=== PATIENT | male | born 1975 | race Two or more races ===

== ENCOUNTER 2018-11-06 16:29 | Inpatient (IN) | payer OTHER ==
[2018-11-06 19:19] VITALS: BMI 23.6
--- NOTE | 2018-11-06 21:02 | HP ---
COWS - Scale Resting Pulse: 0= [place] 80 or Below Sweatin= Chills/Flushing Restless Observation: 1= Difficult to Sit Still Pupil Size: 1= Pupils >than Normal Bone or Joint Aches: 2= Severe Diffuse Aches Runny Nose/ Eye Tearin= Runny Nose/Eyes GI Upset > 30mins: 2= Nausea/Diarrhea Tremor Observation: 2= Slight Tremor Visible Yawning Observation: 0= None Anxiety or Irritability: 1=Feels Anxious/Irritable Goose Flesh Skin: 0=Smooth Skin COWS Score: 12 CIWA Score Nausea/Vomitin-Mild Nausea/No Vomiting Muscle Tremors: 3 Anxiety: 3 Agitation: 3 Paroxysmal Sweats: 2 Orientation: 0-Oriented Tacttile Disturbances: 0-None Auditory Disturbances: 0-None Visual Disturbances: 0-None Headache: 0-None Present CIWA-Ar Total Score: 12 - Admission Criteria [facility]ASAS Guidelines: Admission for Medically Managed Detox: Requires at least one of the followin. CIWA greater than 12 2. Seizures within the past 24 hours 3. Delirium tremens within the past 24 hours 4. Hallucinations within the past 24 hours 5. Acute intervention needed for co occurring medical disorder 6. Acute intervention needed for co occurring psychiatric disorder 7. Severe withdrawal that cannot be handled at a lower level of care (continued vomiting, continued diarrhea, abnormal vital signs) requiring intravenous medication and/or fluids 8. Patient presents the following: CIWA greater than 12 Admission Criteria Met: Admission criteria met Admission ROS [facility] Chief Complaint: detox for benzo, heroin and alcohol. History of Present Illness: 42 yo no medical problems, on remeron and vistaril, sent here from [facility] in [place]. Has been to rehab about 2 years and relapsed within a few months. Started using about opioids since age 20. Now uses: Heroin- 1 bundle a day, sniff Alcohol- 2 40 oz of beer/hen[place] benzo- 5 2 mg xanax cocaine- 1-2 gram/day IStop- negative for substances Utox: fen/morphine Exam Limitations: No Limitations - Ebola screening Have you traveled outside of the country in the last 21 days: No Have you been sick,other than usual withdrawal symptoms: No Do you have a fever: No - Review of Systems Constitutional: No Symptoms Reported EENT: reports: No Symptoms Reported Respiratory: reports: No Symptoms reported Cardiac: reports: No Symptoms Reported GI: reports: No Symptoms Reported : reports: No Symptoms Reported Musculoskeletal: reports: No Symptoms Reported Neuro: reports: No Symptoms reported Endocrine: reports: No Symptoms Reported Hematology: reports: No Symptoms Reported Psychiatric: reports: No Sypmtoms Reported Patient History - Patient Medical History Hx Anemia: No Hx Asthma: No Hx Chronic Obstructive Pulmonary Disease (COPD): No Hx Cancer: No Hx Cardiac Disorders: No Hx Hypertension: No Hx Hypercholesterolemia: No Hx Pacemaker: No HX Cerebrovascular Accident: No Hx Seizures: No Hx Dementia: No Hx Diabetes: No Hx Gastrointestinal Disorders: No Hx Genitourinary Disorders: No Hx Renal Disease (ESRD): No Hx Thyroid Disease: No - Patient Surgical History Past Surgical History: No - PPD History Documented Results: Negative w/o proof - Smoking Cessation Smoking history: Current some day smoker Have you smoked in the past 12 months: Yes Aproximately how many cigarettes per day: 25 Hx Chewing Tobacco Use: No Initiated information on smoking cessation: Yes 'Breaking Loose' booklet given: 11/06/18 - Substance & Tx. History Substance Use Type: Alcohol, Cocaine, Heroin, Marijuana, Opiates Hx Substance Use Treatment: Yes - Substances Abused Alcohol Route: Inhalation Frequency: Daily xanax Route: Oral Frequency: Daily heroin Route: Inhalation Frequency: Daily cocaine Frequency: Daily Family Disease History - Family Disease History Family History: Denies Admission Physical Exam BHS - Vital Signs Vital Signs: Vital Signs - 24 hr 11/06/18 19:17 Temperature 96.8 F L Pulse Rate 74 Respiratory 18 Rate Blood Pressure 125/82 - Physical General Appearance: Yes: Within Normal Limits HEENTM: Yes: Within Normal Limits Respiratory: Yes: Within Normal Limits Neck: Yes: Within Normal Limits Cardiology: Yes: Within Normal Limits Abdominal: Yes: Within Normal Limits Genitourinary: Yes: Within Normal Limits Back: Yes: Within Normal Limits Musculoskeletal: Yes: Within Normal Limits Extremities: Yes: Within Normal Limits Neurological: Yes: Within Normal Limits Integumentary: Yes: Within Normal Limits Lymphatic: Yes: Within Normal Limits - Diagnostic (1) Opioid use disorder Current Visit: Yes Status: Acute (2) Cocaine use disorder Current Visit: Yes Status: Acute (3) Moderate benzodiazepine use disorder Current Visit: Yes Status: Acute (4) Alcohol use disorder Current Visit: Yes Status: Acute (5) Tobacco use disorder Current Visit: Yes Status: Acute Cleared for Admission [facility] - Detox or Rehab [facility] Level of Care: Medically Managed [facility] Breath Alcohol Content Breath Alcohol Content: 0 Urine Drug Screen - Results Drug Screen Negative: No Urine Drug Screen Results: OPI-Opiates, FEN-Fentanyl
[2018-11-06] MEDS ORDERED: MAG HYDROX/AL HYDROX/SIMETH 30 ML UNIT-DOSE CUP PO PRN (21:19)
[2018-11-06] MEDS ORDERED: guaiFENesin/D-METHORPHAN HB 10 ML UNIT-DOSE CUPS PO PRN (21:19)
[2018-11-06] MEDS ORDERED: P-EPHED 60MG/TRIPROLIDI 2.5MG TABLET PO PRN (21:19)
[2018-11-06] MEDS ORDERED: LOPERAMIDE HCL 2 MG CAPSULE PO PRN (21:19)
[2018-11-06] MEDS ORDERED: MENTHOL/PHENOL 1 EACH UD MM PRN (21:19)
[2018-11-06] MEDS ORDERED: MAGNESIUM CITRATE 300 ML BOTTLE PO PRN (21:19)
[2018-11-06] MEDS ORDERED: ACETAMINOPHEN 325 MG TABLET (FP) PO PRN (21:19)
[2018-11-06] MEDS ORDERED: MAGNESIUM HYDROX 2400MG/30ML ORAL SUSPENSION 30 ML CUP PO PRN (21:19)
[2018-11-06] MEDS ORDERED: IBUPROFEN 400 MG TABLET (FP) PO PRN (21:19)
[2018-11-06] MEDS ORDERED: chlordiazePOXIDE HCL 25 MG CAPSULE PO PRN (21:21)
[2018-11-06] MEDS ORDERED: METHADONE HCL 10 MG TABLET (FOR DETOX USE ONLY) PO ONE ×2 (21:30→23:00)
[2018-11-06] MEDS ORDERED: MELATONIN 5 MG TABLETS PO PRN (22:00)
[2018-11-06] MEDS: THIAMINE HCL 100 MG TABLET (FP) PO SCH (23:13)
[2018-11-06] MEDS: chlordiazePOXIDE HCL 25 MG CAPSULE PO SCH (23:14)
[2018-11-07] MEDS ORDERED: chlordiazePOXIDE HCL 25 MG CAPSULE PO PRN (01:03)
[2018-11-07] MEDS ORDERED: METHADONE HCL 10 MG TABLET (FOR DETOX USE ONLY) PO ONE ×4 (01:03→22:00)
[2018-11-07] MEDS: chlordiazePOXIDE HCL 25 MG CAPSULE PO SCH ×5 (01:15→22:45)
[2018-11-07] MEDS ORDERED: chlordiazePOXIDE HCL 25 MG CAPSULE PO SCH (05:00)
--- NOTE | 2018-11-07 09:07 | PN ---
[facility] CIWA - CIWA Score Nausea/Vomitin-Mild Nausea/No Vomiting Muscle Tremors: 2 Anxiety: 1-Mildly Anxious Agitation: 2 Paroxysmal Sweats: 1-Minimal Palms Moist Orientation: 1-Uncertain about Date Tacttile Disturbances: 1-Very Mild Itch/Numbness Auditory Disturbances: 1-Very Mild Visual Disturbances: 0-None Headache: 2-Mild CIWA-Ar Total Score: 12 BHS COWS - Scale Resting Pulse: 0= [place] 80 or Below Sweatin= Chills/Flushing Restless Observation: 0= Sits Still Pupil Size: 0= Normal to Room Light Bone or Joint Aches: 2= Severe Diffuse Aches Runny Nose/ Eye Tearin= Nasal Congestion GI Upset > 30mins: 2= Nausea/Diarrhea Tremor Observation of Outstretched Hands: 2= Slight Tremor Visible Yawning Observation: 1= 1-2x During Session Anxiety or Irritability: 1=Feels Anxious/Irritable Goose Flesh Skin: 0=Smooth Skin COWS Score: 10 S Progress Note (SOAP) Subjective: tremor sweat restlessness body aches muscle cramping Objective: 11/07/18 13:09 Vital Signs Temperature 97.4 F L 11/07/18 09:32 Pulse Rate 70 11/07/18 09:32 Respiratory Rate 18 11/07/18 09:32 Blood Pressure 112/68 11/07/18 09:32 O2 Sat by Pulse Oximetry (%) Laboratory Last Values WBC 4.2 K/mm3 (4.0-10.0) 11/07/18 07:30 RBC 3.95 M/mm3 (4.00-5.60) L 11/07/18 07:30 Hgb 12.2 GM/dL (11.7-16.9) 11/07/18 07:30 Hct 37.3 % (35.4-49) 11/07/18 07:30 MCV 94.5 fl (80-96) 11/07/18 07:30 MCH 30.8 pg (25.7-33.7) 11/07/18 07:30 MCHC 32.6 g/dl (32.0-35.9) 11/07/18 07:30 RDW 12.8 % (11.9-15.9) 11/07/18 07:30 Plt Count 175 K/MM3 (134-434) 11/07/18 07:30 MPV 10.6 fl (7.5-11.1) 11/07/18 07:30 Sodium 141 mmol/L (136-145) 11/07/18 07:30 Potassium 3.7 mmol/L (3.5-5.1) 11/07/18 07:30 Chloride 106 mmol/L (98-107) 11/07/18 07:30 Carbon Dioxide 26 mmol/L (21-32) 11/07/18 07:30 Anion Gap 9 MMOL/L (8-16) 11/07/18 07:30 BUN 14 mg/dL (7-18) 11/07/18 07:30 Creatinine 0.6 mg/dL (0.55-1.3) 11/07/18 07:30 Creat Clearance w eGFR > 60 (>60) 11/07/18 07:30 Random Glucose 96 mg/dL (74-106) 11/07/18 07:30 Calcium 8.4 mg/dL (8.5-10.1) L 11/07/18 07:30 Total Bilirubin 0.4 mg/dL (0.2-1) 11/07/18 07:30 AST 35 U/L (15-37) 11/07/18 07:30 ALT 79 U/L (13-61) H 11/07/18 07:30 Alkaline Phosphatase 102 U/L (45-117) 11/07/18 07:30 Total Protein 6.4 g/dl (6.4-8.2) 11/07/18 07:30 Albumin 3.4 g/dl (3.4-5.0) 11/07/18 07:30 RPR Titer Nonreactive (NONREACTIVE) 11/07/18 07:30 lab noted Assessment: 11/07/18 09:07 withdrawal sx methadone detox regimen correction Plan: continue detox
[2018-11-07] MEDS ORDERED: METHADONE HCL 5 MG TABLET (FOR DETOX USE ONLY) PO SCH (10:00)
[2018-11-07] MEDS ORDERED: METHADONE HCL 10 MG TABLET PO ONE (10:00)
[2018-11-07] MEDS: PRENATAL VITAMINS W/ FOLIC ACID TABLET (FP) PO SCH (10:09)
[2018-11-07 11:03] LABS: HEMATOCRIT 37.3 % (35.4-49); HEMOGLOBIN 12.2 GM/dL (11.7-16.9); MCH 30.8 pg (25.7-33.7); MCHC 32.6 g/dl (32.0-35.9); MEAN CELL VOLUME 94.5 fl (80-96); MEAN PLT VOLUME 10.6 fl (7.5-11.1); PLATELET COUNT 175 K/MM3 (134-434); RBC 3.95 M/mm3 (4.00-5.60); RDW 12.8 % (11.9-15.9); WHITE BLOOD COUNT 4.2 K/mm3 (4.0-10.0)
[2018-11-07 11:56] LABS: ALBUMIN 3.4 g/dl (3.4-5.0); ALK PHOS 102 U/L (45-117); ANION GAP 9 MMOL/L (8-16); BILIRUBIN,TOTAL 0.4 mg/dL (0.2-1); BLOOD UREA NITROGEN 14 mg/dL (7-18); CALCIUM 8.4 mg/dL (8.5-10.1); CHLORIDE 106 mmol/L (98-107); CO2 26 mmol/L (21-32); CREATININE 0.6 mg/dL (0.55-1.3); GLUCOSE,RANDOM 96 mg/dL (74-106); POTASSIUM 3.7 mmol/L (3.5-5.1); SGOT/AST 35 U/L (15-37); SGPT/ALT 79 U/L (13-61); SODIUM 141 mmol/L (136-145); TOT PROT 6.4 g/dl (6.4-8.2)
--- NOTE | 2018-11-07 15:16 | CONSULT ---
[facility] Psychiatric Consult - Data Date of interview: 11/07/18 Admission source: [facility] Identifying data: First admission to [facility] for this 42 y/o AA male seeking detoxification treatment, on , for heroin, alcohol,cocaine and xanax dependence. Patient is single, a father of two, domiciled,unemployed and supported on food stamps. Substance Abuse History: Confirmed by the patient in this interview. Details in current [facility] report : Smoking history: Current some day smoker. Have you smoked in the past 12 months: Yes. Aproximately how many cigarettes per day: 25. Hx Chewing Tobacco Use: No. Initiated information on smoking cessation: Yes. ' Breaking Loose' booklet given: 11/06/18. - Substance & Tx. History. Substance Use Type: Alcohol, Cocaine, Heroin, Marijuana, Opiates. Hx Substance Use Treatment: Yes. - Substances Abused. Alcohol. Route: Inhalation. Frequency: Daily. xanax. Route: Oral. Frequency: Daily. heroin. Route : Inhalation. Frequency: Daily. cocaine. Frequency: Daily Medical History: patient endorses good general health. Psychiatric History: No reported history of psychiatric hospitalizations. Patient sees a psychiatrist at the [facility] in [facility]. Diagnosed with MDD. Medicated with vistaril + remeron 15 mg po hs. Mr Figueroa denies history of suicide attempts. Physical/Sexual Abuse/Trauma History: Patient denies. Additional Comment: Urine Drug Screen Results: OPI-Opiates, FEN-Fentanyl. Noted. Mental Status Exam - Mental Status Exam Alert and Oriented to: Time, Place, Person Cognitive Function: Good Patient Appearance: Well Groomed (covered with tattoos) Mood: Hopeful, Euthymic Affect: Appropriate, Normal Range Patient Behavior: Fatigued, Cooperative Speech Pattern: Clear Voice Loudness: Normal Thought Process: Intact, Goal Oriented Thought Disorder: Not Present Hallucinations: Denies Suicidal Ideation: Denies Homicidal Ideation: Denies Insight/Judgement: Poor Sleep: Poorly, Difficulty falling asleep Appetite: Good Muscle strength/Tone: Normal Gait/Station: Normal Psychiatric Findings - Problem List ([place] 1, 2,3) (1) Alcohol use disorder Current Visit: Yes Status: Acute (2) Cocaine use disorder Current Visit: Yes Status: Acute (3) Moderate benzodiazepine use disorder Current Visit: Yes Status: Acute (4) Opioid use disorder Current Visit: Yes Status: Acute (5) Tobacco use disorder Current Visit: Yes Status: Acute (6) Insomnia Current Visit: Yes Status: Acute - Initial Treatment Plan Initial Treatment Plan: Psychoeducation. Sleep hygiene. Detoxification. Remeron 15 mg po hs. Side effects/benefits discussed with the patient. Mr Figueroa agrees to this careplan. Observation.
[2018-11-07] MEDS: THIAMINE HCL 100 MG TABLET (FP) PO SCH (22:45)
[2018-11-07] MEDS: MIRTAZAPINE 15 MG TABLET (FP) PO SCH (22:45)
[2018-11-07 23:25] LABS: URINE APPEARANCE CLEAR; URINE BILIRUBIN NEGATIVE (<2.0 mg/dL); URINE COLOR YELLOW; URINE GLUCOSE (UA) NEGATIVE (NEGATIVE); URINE KETONE NEGATIVE (NEGATIVE); URINE LEUK ESTERASE NEGATIVE (NEGATIVE); URINE NITRITE NEGATIVE (NEGATIVE); URINE PROTEIN NEGATIVE (NEGATIVE); URINE UROBILINOGEN NEGATIVE mg/dL (0.2-1.0)
[2018-11-08] MEDS ORDERED: chlordiazePOXIDE 5 MG CAPSULE PO SCH (05:00)
[2018-11-08] MEDS: chlordiazePOXIDE HCL 25 MG CAPSULE PO SCH ×4 (05:49→22:22)
--- NOTE | 2018-11-08 09:59 | PN ---
S CIWA - CIWA Score Nausea/Vomitin-Mild Nausea/No Vomiting Muscle Tremors: 3 Anxiety: 3 Agitation: 2 Paroxysmal Sweats: 1-Minimal Palms Moist Orientation: 0-Oriented Tacttile Disturbances: 0-None Auditory Disturbances: 0-None Visual Disturbances: 0-None Headache: 2-Mild CIWA-Ar Total Score: 12 BHS COWS - Scale Resting Pulse: 0= [place] 80 or Below Sweatin= Chills/Flushing Restless Observation: 0= Sits Still Pupil Size: 0= Normal to Room Light Bone or Joint Aches: 1= Mild Discomfort Runny Nose/ Eye Tearin= None GI Upset > 30mins: 2= Nausea/Diarrhea Tremor Observation of Outstretched Hands: 2= Slight Tremor Visible Yawning Observation: 1= 1-2x During Session Anxiety or Irritability: 1=Feels Anxious/Irritable Goose Flesh Skin: 0=Smooth Skin COWS Score: 8 S Progress Note (SOAP) Subjective: tremor sweat body aches sleep throughout the night Objective: 11/08/18 09:58 Vital Signs Temperature 97.0 F L 11/08/18 09:54 Pulse Rate 112 H 11/08/18 09:54 Respiratory Rate 18 11/08/18 09:54 Blood Pressure 105/74 11/08/18 09:54 O2 Sat by Pulse Oximetry (%) Laboratory Last Values WBC 4.2 K/mm3 (4.0-10.0) 11/07/18 07:30 RBC 3.95 M/mm3 (4.00-5.60) L 11/07/18 07:30 Hgb 12.2 GM/dL (11.7-16.9) 11/07/18 07:30 Hct 37.3 % (35.4-49) 11/07/18 07:30 MCV 94.5 fl (80-96) 11/07/18 07:30 MCH 30.8 pg (25.7-33.7) 11/07/18 07:30 MCHC 32.6 g/dl (32.0-35.9) 11/07/18 07:30 RDW 12.8 % (11.9-15.9) 11/07/18 07:30 Plt Count 175 K/MM3 (134-434) 11/07/18 07:30 MPV 10.6 fl (7.5-11.1) 11/07/18 07:30 Sodium 141 mmol/L (136-145) 11/07/18 07:30 Potassium 3.7 mmol/L (3.5-5.1) 11/07/18 07:30 Chloride 106 mmol/L (98-107) 11/07/18 07:30 Carbon Dioxide 26 mmol/L (21-32) 11/07/18 07:30 Anion Gap 9 MMOL/L (8-16) 11/07/18 07:30 BUN 14 mg/dL (7-18) 11/07/18 07:30 Creatinine 0.6 mg/dL (0.55-1.3) 11/07/18 07:30 Creat Clearance w eGFR > 60 (>60) 11/07/18 07:30 Random Glucose 96 mg/dL (74-106) 11/07/18 07:30 Calcium 8.4 mg/dL (8.5-10.1) L 11/07/18 07:30 Total Bilirubin 0.4 mg/dL (0.2-1) 11/07/18 07:30 AST 35 U/L (15-37) 11/07/18 07:30 ALT 79 U/L (13-61) H 11/07/18 07:30 Alkaline Phosphatase 102 U/L (45-117) 11/07/18 07:30 Total Protein 6.4 g/dl (6.4-8.2) 11/07/18 07:30 Albumin 3.4 g/dl (3.4-5.0) 11/07/18 07:30 Urine Color Yellow 11/07/18 18:15 Urine Appearance Clear 11/07/18 18:15 Urine pH 7.0 (5.0-8.0) 11/07/18 18:15 Ur Specific [place] 1.019 (1.010-1.035) 11/07/18 18:15 Urine Protein Negative (NEGATIVE) 11/07/18 18:15 Urine Glucose (UA) Negative (NEGATIVE) 11/07/18 18:15 Urine Ketones Negative (NEGATIVE) 11/07/18 18:15 Urine Blood Negative (NEGATIVE) 11/07/18 18:15 Urine Nitrite Negative (NEGATIVE) 11/07/18 18:15 Urine Bilirubin Negative (<2.0 mg/dL) 11/07/18 18:15 Urine Urobilinogen Negative mg/dL (0.2-1.0) 11/07/18 18:15 Ur Leukocyte Esterase Negative (NEGATIVE) 11/07/18 18:15 RPR Titer Nonreactive (NONREACTIVE) 11/07/18 07:30 lab noted Assessment: 11/08/18 09:58 withdrawal sx Plan: continue detox
[2018-11-08] MEDS ORDERED: METHADONE HCL 5 MG TABLET (FOR DETOX USE ONLY) PO SCH ×2 (10:00)
[2018-11-08] MEDS ORDERED: METHADONE HCL 10 MG TABLET PO ONE (10:00)
[2018-11-08] MEDS: METHADONE HCL 5 MG TABLET (FOR DETOX USE ONLY) PO SCH (11:03)
[2018-11-08] MEDS: PRENATAL VITAMINS W/ FOLIC ACID TABLET (FP) PO SCH (11:04)
[2018-11-08] MEDS: THIAMINE HCL 100 MG TABLET (FP) PO SCH (22:21)
[2018-11-08] MEDS: MIRTAZAPINE 15 MG TABLET (FP) PO SCH (22:22)
[2018-11-09] MEDS ORDERED: chlordiazePOXIDE HCL 10 MG CAPSULE PO SCH (05:00)
[2018-11-09] MEDS: chlordiazePOXIDE 5 MG CAPSULE PO SCH ×4 (05:52→22:23)
[2018-11-09] MEDS ORDERED: METHADONE HCL 5 MG TABLET (FOR DETOX USE ONLY) PO SCH (10:00)
[2018-11-09] MEDS: PRENATAL VITAMINS W/ FOLIC ACID TABLET (FP) PO SCH (10:43)
[2018-11-09] MEDS: METHADONE HCL 5 MG TABLET (FOR DETOX USE ONLY) PO SCH (10:43)
--- NOTE | 2018-11-09 15:39 | PN ---
[facility] Progress Note Note: PATIENT CONTINUES WITH DETOX REGIMEN. D/O INTERRUPTED SLEEP, CHILLS AND MILD HEADACHE. Vital Signs Temperature 97.8 F 11/09/18 13:17 Pulse Rate 108 H 11/09/18 13:17 Respiratory Rate 18 11/09/18 13:17 Blood Pressure 121/92 11/09/18 13:17 O2 Sat by Pulse Oximetry (%) Laboratory Tests 11/07/18 11/07/18 11/07/18 07:30 07:30 07:30 WBC 4.2 RBC 3.95 L Hgb 12.2 Hct 37.3 MCV 94.5 MCH 30.8 MCHC 32.6 RDW 12.8 Plt Count 175 MPV 10.6 Sodium 141 Potassium 3.7 Chloride 106 Carbon Dioxide 26 Anion Gap 9 BUN 14 Creatinine 0.6 Creat Clearance w eGFR > 60 Random Glucose 96 Calcium 8.4 L Total Bilirubin 0.4 AST 35 ALT 79 H Alkaline Phosphatase 102 Total Protein 6.4 Albumin 3.4 Urine Color Urine Appearance Urine pH Ur Specific [place] Urine Protein Urine Glucose (UA) Urine Ketones Urine Blood Urine Nitrite Urine Bilirubin Urine Urobilinogen Ur Leukocyte Esterase RPR Titer Nonreactive 11/07/18 18:15 WBC RBC Hgb Hct MCV MCH MCHC RDW Plt Count MPV Sodium Potassium Chloride Carbon Dioxide Anion Gap BUN Creatinine Creat Clearance w eGFR Random Glucose Calcium Total Bilirubin AST ALT Alkaline Phosphatase Total Protein Albumin Urine Color Yellow Urine Appearance Clear Urine pH 7.0 Ur Specific [place] 1.019 Urine Protein Negative Urine Glucose (UA) Negative Urine Ketones Negative Urine Blood Negative Urine Nitrite Negative Urine Bilirubin Negative Urine Urobilinogen Negative Ur Leukocyte Esterase Negative RPR Titer PE: ALERT AND ORIENTED X 3 ANXIOUS/IRRITABLE SKIN WARM AND DRY EXT FULL ROM, AMB AD TRUDY, NO TREMORS VISIBLE A/P: WITHDRAWAL SX CONTINUE DETOX ENCOURAGE ORAL FLUIDS CONTINUE TO MONITOR
[2018-11-09] MEDS: MIRTAZAPINE 15 MG TABLET (FP) PO SCH (22:23)
[2018-11-09] MEDS: THIAMINE HCL 100 MG TABLET (FP) PO SCH (22:23)
[2018-11-10] MEDS: chlordiazePOXIDE HCL 10 MG CAPSULE PO SCH ×4 (05:50→22:15)
[2018-11-10] MEDS ORDERED: METHADONE HCL 10 MG TABLET (FOR DETOX USE ONLY) PO SCH (10:00)
[2018-11-10] MEDS ORDERED: METHADONE HCL 10 MG TABLET (FOR DETOX USE ONLY) PO ONE (10:00)
[2018-11-10] MEDS: PRENATAL VITAMINS W/ FOLIC ACID TABLET (FP) PO SCH (10:40)
--- NOTE | 2018-11-10 14:08 | PN ---
[facility] Progress Note (SOAP) Subjective: Generalized pain, shakes and sweats Objective: 11/10/18 14:07 Vital Signs Temperature 97.0 F L 11/10/18 10:53 Pulse Rate 100 H 11/10/18 10:53 Respiratory Rate 20 11/10/18 10:53 Blood Pressure 111/78 11/10/18 10:53 O2 Sat by Pulse Oximetry (%) Laboratory Last Values WBC 4.2 K/mm3 (4.0-10.0) 11/07/18 07:30 RBC 3.95 M/mm3 (4.00-5.60) L 11/07/18 07:30 Hgb 12.2 GM/dL (11.7-16.9) 11/07/18 07:30 Hct 37.3 % (35.4-49) 11/07/18 07:30 MCV 94.5 fl (80-96) 11/07/18 07:30 MCH 30.8 pg (25.7-33.7) 11/07/18 07:30 MCHC 32.6 g/dl (32.0-35.9) 11/07/18 07:30 RDW 12.8 % (11.9-15.9) 11/07/18 07:30 Plt Count 175 K/MM3 (134-434) 11/07/18 07:30 MPV 10.6 fl (7.5-11.1) 11/07/18 07:30 Sodium 141 mmol/L (136-145) 11/07/18 07:30 Potassium 3.7 mmol/L (3.5-5.1) 11/07/18 07:30 Chloride 106 mmol/L (98-107) 11/07/18 07:30 Carbon Dioxide 26 mmol/L (21-32) 11/07/18 07:30 Anion Gap 9 MMOL/L (8-16) 11/07/18 07:30 BUN 14 mg/dL (7-18) 11/07/18 07:30 Creatinine 0.6 mg/dL (0.55-1.3) 11/07/18 07:30 Creat Clearance w eGFR > 60 (>60) 11/07/18 07:30 Random Glucose 96 mg/dL (74-106) 11/07/18 07:30 Calcium 8.4 mg/dL (8.5-10.1) L 11/07/18 07:30 Total Bilirubin 0.4 mg/dL (0.2-1) 11/07/18 07:30 AST 35 U/L (15-37) 11/07/18 07:30 ALT 79 U/L (13-61) H 11/07/18 07:30 Alkaline Phosphatase 102 U/L (45-117) 11/07/18 07:30 Total Protein 6.4 g/dl (6.4-8.2) 11/07/18 07:30 Albumin 3.4 g/dl (3.4-5.0) 11/07/18 07:30 Urine Color Yellow 11/07/18 18:15 Urine Appearance Clear 11/07/18 18:15 Urine pH 7.0 (5.0-8.0) 11/07/18 18:15 Ur Specific [place] 1.019 (1.010-1.035) 11/07/18 18:15 Urine Protein Negative (NEGATIVE) 11/07/18 18:15 Urine Glucose (UA) Negative (NEGATIVE) 11/07/18 18:15 Urine Ketones Negative (NEGATIVE) 11/07/18 18:15 Urine Blood Negative (NEGATIVE) 11/07/18 18:15 Urine Nitrite Negative (NEGATIVE) 11/07/18 18:15 Urine Bilirubin Negative (<2.0 mg/dL) 11/07/18 18:15 Urine Urobilinogen Negative mg/dL (0.2-1.0) 11/07/18 18:15 Ur Leukocyte Esterase Negative (NEGATIVE) 11/07/18 18:15 RPR Titer Nonreactive (NONREACTIVE) 11/07/18 07:30 Labs noted Assessment: 11/10/18 14:07 Withdrawal sx Plan: Continue detox
[2018-11-10] MEDS: THIAMINE HCL 100 MG TABLET (FP) PO SCH (22:15)
[2018-11-10] MEDS: MIRTAZAPINE 15 MG TABLET (FP) PO SCH (22:15)
[2018-11-10 22:21] VITALS: TEMP 96.9
[2018-11-11] MEDS ORDERED: METHADONE HCL 5 MG TABLET (FOR DETOX USE ONLY) PO ONE (06:00)
[2018-11-11] MEDS ORDERED: METHADONE HCL 10 MG TABLET (FOR DETOX USE ONLY) PO SCH ×2 (06:00→10:00)
[2018-11-11 06:44] VITALS: BP 120/82; PULSE 72
--- NOTE | 2018-11-11 12:30 | DS ---
[facility] Detox Discharge Summary Admission Date: 11/06/18 Discharge Date: 11/11/18 - History Present History: Alcohol Dependence, Cocaine Dependence, Opioid Dependence, Sedative Dependence Additional Comments: Patient completed detox successfully. Patient is A, A, Ox3, in nad, vss, ambulatory. Patient to follow up with PCP within 1-2 weeks Pertinent Past History: Alcohol use disorder Sedative use disorder Opioid use disorder Cocaine use disorder Nicotine dependence - Physical Exam Results Vital Signs: Vital Signs Temperature 96.9 F L 11/11/18 06:43 Pulse Rate 72 11/11/18 06:43 Respiratory Rate 18 11/11/18 06:43 Blood Pressure 120/82 11/11/18 06:43 O2 Sat by Pulse Oximetry (%) Pertinent Admission Physical Exam Findings: Withdrawal symptoms Laboratory Tests 11/07/18 11/07/18 11/07/18 07:30 07:30 07:30 WBC 4.2 RBC 3.95 L Hgb 12.2 Hct 37.3 MCV 94.5 MCH 30.8 MCHC 32.6 RDW 12.8 Plt Count 175 MPV 10.6 Sodium 141 Potassium 3.7 Chloride 106 Carbon Dioxide 26 Anion Gap 9 BUN 14 Creatinine 0.6 Creat Clearance w eGFR > 60 Random Glucose 96 Calcium 8.4 L Total Bilirubin 0.4 AST 35 ALT 79 H Alkaline Phosphatase 102 Total Protein 6.4 Albumin 3.4 Urine Color Urine Appearance Urine pH Ur Specific [place] Urine Protein Urine Glucose (UA) Urine Ketones Urine Blood Urine Nitrite Urine Bilirubin Urine Urobilinogen Ur Leukocyte Esterase RPR Titer Nonreactive 11/07/18 18:15 WBC RBC Hgb Hct MCV MCH MCHC RDW Plt Count MPV Sodium Potassium Chloride Carbon Dioxide Anion Gap BUN Creatinine Creat Clearance w eGFR Random Glucose Calcium Total Bilirubin AST ALT Alkaline Phosphatase Total Protein Albumin Urine Color Yellow Urine Appearance Clear Urine pH 7.0 Ur Specific [place] 1.019 Urine Protein Negative Urine Glucose (UA) Negative Urine Ketones Negative Urine Blood Negative Urine Nitrite Negative Urine Bilirubin Negative Urine Urobilinogen Negative Ur Leukocyte Esterase Negative RPR Titer Labs reviewed - Treatment Hospital Course: Detox Protocol Followed, Detoxed Safely, Responded well, Discharged Condition Good - Medication Discharge Medications: Ambulatory Orders NK [No Known Home Medication] 11/06/18 - Diagnosis (1) Nicotine dependence Status: Chronic (2) Alcohol dependence with uncomplicated withdrawal Status: Acute (3) Cocaine use disorder Status: Chronic (4) Moderate benzodiazepine use disorder Status: Acute (5) Opioid use disorder Status: Acute - AMA Did Patient Leave Against Medical Advice: No (F/U with PCP within 1-2 weeks)
[2018-11-12] MEDS ORDERED: METHADONE HCL 10 MG TABLET (FOR DETOX USE ONLY) PO SCH (06:00)
== END 2018-11-11 08:52 | disposition home or self-care (01) | DRG 773 ==
LOC: YASAS 16:29 → Y3N 21:24
PROC: HZ2ZZZZ Detoxification Services for Substance Abuse Treatment (ICD-10-PCS; principal; 2018-11-06)
DX: F11.23 Opioid dependence with withdrawal (principal); F10.230 Alcohol dependence with withdrawal, uncomplicated; F13.230 Sedative, hypnotic or anxiolytic dependence with withdrawal, uncomplicated; F14.20 Cocaine dependence, uncomplicated; F17.210 Nicotine dependence, cigarettes, uncomplicated; G47.00 Insomnia, unspecified
CPT/HCPCS: 36415; 80053; 81003; 85027; 86593

== ENCOUNTER 2019-12-11 13:11 | Inpatient (IN) | payer OTHER ==
[2019-12-11 17:31] VITALS: BMI 23.2
--- NOTE | 2019-12-11 20:55 | HP ---
CIWA Score Nausea/Vomitin Muscle Tremors: 1-None Visible, but [place] Anxiety: 4-Mod. Anxious/Guarded Agitation: 4-Moderately Restless Paroxysmal Sweats: 3 Orientation: 1-Uncertain about Date Tacttile Disturbances: 0-None Auditory Disturbances: 1-Very Mild Visual Disturbances: 2-Mild Sensitivity (to light) Headache: 0-None Present CIWA-Ar Total Score: 21 - Admission Criteria OASAS Guidelines: Admission for Medically Managed Detox: Requires at least one of the followin. CIWA greater than 12 2. Seizures within the past 24 hours 3. Delirium tremens within the past 24 hours 4. Hallucinations within the past 24 hours 5. Acute intervention needed for co occurring medical disorder 6. Acute intervention needed for co occurring psychiatric disorder 7. Severe withdrawal that cannot be handled at a lower level of care (continued vomiting, continued diarrhea, abnormal vital signs) requiring intravenous medication and/or fluids 8. Patient presents the following: CIWA greater than 12 Admission Criteria Met: Admission criteria met Admitting History and Physical - Smoking History Smoking history: Current some day smoker Have you smoked in the past 12 months: Yes Aproximately how many cigarettes per day: 25 Admission ROS [facility] Chief Complaint: HERE FOR ALCOHOL AND BENZO DETOX Allergies/Adverse Reactions: Allergies Allergy/AdvReac Type Severity Reaction Status Date / Time No Known Allergies Allergy Verified 12/11/19 17:24 History of Present Illness: HERE FOR ALCOHOL AND BENZO DETOX. REFERRED BY HIS MMTP START. HERE IS IS ON A REPORTED DOSE OF METHADONE 40 MG. LDM 1 DAY AGO. HE REPORTS DAILY USE OF ALCOHOL AND XANAX. 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 DENIES IVDU, BLACK OUTS, DRUG OVERDOSE, AND SZ D/O. HE ALSO ABUSES HEROIN, COCAINE. LONGEST PERIOD CLEAN TIME 1 YEAR. MOST RECENT CLEAN TIME 4 MONTHS RELAPSING 8 MONTHS AGO. LIVES WITH FAMILY, UNEMPLOYED, DENIES LEGALS Exam Limitations: No Limitations - Ebola screening Have you traveled outside of the country in the last 21 days: No (N) Have you had contact with anyone from an Ebola affected area: No Do you have a fever: No - Review of Systems Constitutional: Chills, Loss of Appetite, Malaise, Night Sweats, Changes in sleep EENT: reports: Blurred Vision (GLASSES), Nose Congestion, Other (RUNNY NOSE, WATERY EYES) Respiratory: reports: Shortness of Breath (TAMAYO) Cardiac: reports: No Symptoms Reported GI: reports: Nausea, Poor Appetite, Poor Fluid Intake, Vomiting : reports: No Symptoms Reported Musculoskeletal: reports: Back Pain Integumentary: reports: Sweating Neuro: reports: No Symptoms reported Endocrine: reports: No Symptoms Reported Hematology: reports: No Symptoms Reported Psychiatric: reports: Orientated x3, Anxious, Depressed Other Systems: Reviewed and Negative Patient History - Patient Medical History Hx Anemia: No Hx Asthma: No Hx Chronic Obstructive Pulmonary Disease (COPD): No Hx Cancer: No Hx Cardiac Disorders: No Hx Hypertension: No Hx Hypercholesterolemia: No Hx Pacemaker: No HX Cerebrovascular Accident: No Hx Seizures: No Hx Dementia: No Hx Diabetes: No Hx Gastrointestinal Disorders: No Hx Genitourinary Disorders: No Hx Sexually Transmitted Disorders: No Hx Renal Disease (ESRD): No Hx Thyroid Disease: No Hx Depression: Yes (ON MEDS BUT NOT COMPLIANT) Hx Suicide Attempt: No Hx Schizophrenia: No Other Medical History: DENIES - Patient Surgical History Past Surgical History: No Hx Neurologic Surgery: No Hx Cataract Extraction: No Hx Cardiac Surgery: No Hx Lung Surgery: No Hx Breast Surgery: No Hx Breast Biopsy: No Hx Abdominal Surgery: No Hx Appendectomy: No Hx Cholecystectomy: No Hx Genitourinary Surgery: No Hx Section: No Hx Orthopedic Surgery: No Anesthesia Reaction: No - PPD History Previous Implant?: Yes Documented Results: Negative w/proof Implanted On Prior [facility] Admission?: Yes Date: 11/08/18 Results: 0MM PPD to be Administered?: Yes - Smoking Cessation Smoking history: Current some day smoker Have you smoked in the past 12 months: Yes Aproximately how many cigarettes per day: 20 Cigars Per Day: 0 Hx Chewing Tobacco Use: No Initiated information on smoking cessation: Yes 'Breaking Loose' booklet given: 12/11/19 - Substance & Tx. History Hx Alcohol Use: Yes Hx Substance Use: Yes Substance Use Type: Alcohol, Cocaine, Heroin, Tranquilizers (XANAX) Hx Substance Use Treatment: Yes ([facility]) - Substances abused Heroin Substance route: Inhalation Frequency: Daily Amount used: 1 BUNDLE Age of first use: 37 Date of last use: 12/10/19 Alcohol Substance route: Oral Frequency: 3-6 times per week (4X A WEEK) Amount used: 3 PINTS OF HENALISONY Age of first use: 32 Date of last use: 12/10/19 Cocaine Substance route: Inhalation Frequency: Daily Amount used: 1 GRAM A DAY Age of first use: 37 Date of last use: 12/09/19 Alprazolam (Xanax) Substance route: Oral Frequency: Daily Amount used: 3 STICKS Age of first use: 40 Date of last use: 12/10/19 Admission Physical Exam [facility] - Vital Signs Vital Signs: Vital Signs - 24 hr 12/11/19 17:23 Temperature 98.6 F Pulse Rate 87 Respiratory 18 Rate Blood Pressure 126/84 - Physical General Appearance: Yes: Moderate Distress, Sweating, Anxious HEENTM: Yes: EOMI, Normocephalic, Normal Voice, FLAVIO, Pharynx Normal, Other ( GLASSES) Respiratory: Yes: Chest Non-Tender, Lungs Clear, Normal Breath Sounds, No Respiratory Distress, No Accessory Muscle Use Neck: Yes: No masses,lesions,Nodules, Supple, Trachea in good position Breast: Yes: Breasts Symetrical Cardiology: Yes: Regular Rhythm, Regular Rate, S1, S2 Abdominal: Yes: Non Tender, Soft, Increased Bowel Sounds Genitourinary: Yes: Within Normal Limits Back: Yes: Normal Inspection Musculoskeletal: Yes: full range of Motion, Gait Steady Extremities: Yes: Normal Capillary Refill, Normal Range of Motion, Non-Tender Neurological: Yes: Fully Oriented, Alert, Motor Strength 5/5, Depressed Affect Integumentary: Yes: Warm, Moist Lymphatic: Yes: Within Normal Limits - Diagnostic (1) Psychiatric disorder Current Visit: Yes Status: Chronic (2) Opioid dependence, uncomplicated Current Visit: Yes Status: Acute (3) Methadone maintenance therapy patient Current Visit: Yes Status: Chronic (4) Cocaine dependence, uncomplicated Current Visit: Yes Status: Acute (5) Sedative, hypnotic or anxiolytic dependence, uncomplicated Current Visit: Yes Status: Acute (6) Alcohol dependence with uncomplicated withdrawal Current Visit: Yes Status: Acute (7) Nicotine dependence Current Visit: Yes Status: Chronic Qualifiers: Nicotine product type: cigarettes Substance use status: uncomplicated Qualified Code(s): F17.210 - Nicotine dependence, cigarettes, uncomplicated (8) Non compliance w medication regimen Current Visit: Yes Status: Chronic Cleared for Admission [facility] - Detox or Rehab [facility] Level of Care: Medically Managed Detox Regimen/Protocol: Valium Claeared for Rehab Admission: No Breathalyzer - Breathalyzer Breathalyzer: 0 Inpatient Rehab Admission - Rehab Decision to Admit Inpatient rehab admission?: No
[2019-12-11] MEDS ORDERED: ONDANSETRON *ODT* 4 MG TABLET SL PRN (21:01)
[2019-12-11] MEDS ORDERED: diazePAM 5 MG TABLET PO PRN (21:01)
[2019-12-11] MEDS ORDERED: METHOCARBAMOL 500 MG TABLET PO PRN (21:01)
[2019-12-11] MEDS ORDERED: ACETAMINOPHEN 325 MG TABLET (FP) PO PRN ×2 (21:01)
[2019-12-11] MEDS ORDERED: NICOTINE POLACRILEX 2 MG GUM BUC PRN (21:01)
[2019-12-11] MEDS ORDERED: MAGNESIUM CITRATE 300 ML BOTTLE PO PRN (21:01)
[2019-12-11] MEDS ORDERED: BISMUTH SUBSALICYLATE 524 MG/30 ML UD PO PRN (21:01)
[2019-12-11] MEDS ORDERED: DICYCLOMINE HCL 10 MG CAPSULE PO PRN (21:01)
[2019-12-11] MEDS ORDERED: guaiFENesin 200 MG/10 ML 10 ML UNIT-DOSE CUPS PO PRN (21:01)
[2019-12-11] MEDS ORDERED: MAG HYDROX/AL HYDROX/SIMETH 30 ML UNIT-DOSE CUP PO PRN (21:01)
[2019-12-11] MEDS ORDERED: MAGNESIUM HYDROX 2400MG/30ML ORAL SUSPENSION 30 ML CUP PO PRN (21:01)
[2019-12-11] MEDS ORDERED: P-EPHED 60MG/TRIPROLIDI 2.5MG TABLET PO PRN (21:01)
[2019-12-11] MEDS ORDERED: MENTHOL/PHENOL 1 EACH UD MM PRN (21:01)
[2019-12-11] MEDS ORDERED: hydrOXYzine PAMOATE 25 MG CAPSULE (FP) PO PRN (21:01)
[2019-12-11] MEDS ORDERED: IBUPROFEN 400 MG TABLET (FP) PO PRN (21:01)
[2019-12-11] MEDS: diazePAM 5 MG TABLET PO SCH (22:38)
[2019-12-11] MEDS: THIAMINE HCL 100 MG TABLET (FP) PO SCH (22:39)
[2019-12-11] MEDS: MELATONIN 5 MG TABLETS PO PRN (22:40)
[2019-12-12] MEDS: diazePAM 5 MG TABLET PO SCH ×3 (06:34→22:19)
[2019-12-12] MEDS ORDERED: METHADONE HCL 40 MG DISPERSABLE TABLET PO ONE (08:45)
[2019-12-12] MEDS: NICOTINE 21 MG/24 HOURS TOPICAL PATCH TD SCH (10:07)
[2019-12-12] MEDS: PRENATAL VITAMINS W/ FOLIC ACID TABLET (FP) PO SCH (10:08)
--- NOTE | 2019-12-12 11:18 | PN ---
S CIWA - CIWA Score Nausea/Vomitin-No Nausea/No Vomiting Muscle Tremors: 3 Anxiety: 2 Agitation: 3 Paroxysmal Sweats: 3 Orientation: 0-Oriented Tacttile Disturbances: 0-None Auditory Disturbances: 0-None Visual Disturbances: 0-None Headache: 0-None Present CIWA-Ar Total Score: 11 BHS Progress Note (SOAP) Subjective: nausea sweats shakes interrupted sleep body aches Objective: 12/12/19 11:18 Vital Signs Temperature 97.9 F 12/12/19 09:08 Pulse Rate 73 12/12/19 09:08 Respiratory Rate 18 12/12/19 09:08 Blood Pressure 118/73 12/12/19 09:08 O2 Sat by Pulse Oximetry (%) labs pending aaox3 ambulating no acute distress Assessment: 12/12/19 11:18 withdrawals Plan: continue detox zofran sl prn pending labs
[2019-12-12 11:34] LABS: HEMATOCRIT 37.9 % (35.4-49); HEMOGLOBIN 12.7 GM/dL (11.7-16.9); MCH 31.3 pg (25.7-33.7); MCHC 33.6 g/dl (32.0-35.9); MEAN CELL VOLUME 93.4 fl (80-96); MEAN PLT VOLUME 11.6 fl (7.5-11.1); PLATELET COUNT 195 K/MM3 (134-434); RBC 4.06 M/mm3 (4.00-5.60); RDW 12.4 % (11.9-15.9); WHITE BLOOD COUNT 4.5 K/mm3 (4.0-10.0)
[2019-12-12 11:43] LABS: ALBUMIN 3.6 g/dl (3.4-5.0); BILIRUBIN,TOTAL 0.5 mg/dL (0.2-1); BLOOD UREA NITROGEN 10.6 mg/dL (7-18); CALCIUM 8.7 mg/dL (8.5-10.1); CREATININE 0.7 mg/dL (0.55-1.3); POTASSIUM 3.6 mmol/L (3.5-5.1); TOT PROT 6.7 g/dl (6.4-8.2)
--- NOTE | 2019-12-12 12:01 | EKG ---
Test Reason : Blood Pressure : / mmHG Vent. Rate : 069 BPM Atrial Rate : 069 BPM P-R Int : 128 ms QRS Dur : 102 ms QT Int : 416 ms P-R-T Axes : 057 063 065 degrees QTc Int : 445 ms NORMAL SINUS RHYTHM WITH SINUS ARRHYTHMIA CANNOT RULE OUT INFERIOR INFARCT , AGE UNDETERMINED ABNORMAL ECG NO PREVIOUS ECGS AVAILABLE Confirmed by CHASIDY MCCAIN MD ([id number]) on 12/12/2019 12:01:23 PM Referred By: Confirmed By:CHASIDY MCCAIN MD
--- NOTE | 2019-12-12 12:02 | EKG ---
Test Reason : Blood Pressure : / mmHG Vent. Rate : 067 BPM Atrial Rate : 067 BPM P-R Int : 136 ms QRS Dur : 106 ms QT Int : 402 ms P-R-T Axes : 064 073 074 degrees QTc Int : 424 ms NORMAL SINUS RHYTHM WITH SINUS ARRHYTHMIA NORMAL ECG WHEN COMPARED WITH ECG OF 11-DEC-2019 21:36, NO SIGNIFICANT CHANGE WAS FOUND Confirmed by CHASIDY MCCAIN MD ([id number]) on 12/12/2019 12:01:43 PM Referred By: Confirmed By:CHASIDY MCCAIN MD
--- NOTE | 2019-12-12 14:21 | CONSULT ---
[facility] Psychiatric Consult - Data Date of interview: 12/12/19 Admission source: [facility] Identifying data: Mr Figueroa is a 44 years old single Black male, unemployed receiving food stamp, domiciles seeking detox treatment for alcohol, opioid, cocaine and benzodiazepine Substance Abuse History: Reports history of alcohol, heroin, cocaine and xanax use. Refer to addiction counselor's summary for further information Medical History: Unremarkable. Smokes cigarettes 1 ppd Psychiatric History: Patient is known for one previous admission to this facility in October 2019. Reports that his first psychiatric contact was at age 19 for behavior. He said that he received psychotherapy only for a few yeas. Reports that his second psychiatric treatment was at [facility]. He said that he was diagnosed with PTSD and prescribed medications. He does recall name of medications. Reports that his last outpatient psychatric tretment was at [facility]. Claims that he was there for 4 years and stopped Summer 2018. He said that he was prescribed Remeron and Vistaril. During his recent admission to this facility, he saw Dr Merritt on 11/07/19 and he was prescribed Remeron 15 mg/hs. Told caption writer that he has not been fully adherent to medication since discharge. Denies previous suicidal attempt. At present, reports feeling depressed and sleeping poorly Physical/Sexual Abuse/Trauma History: Denies history of abuse as a child or DV relationship Mental Status Exam - Mental Status Exam Alert and Oriented to: Time, Place, Person Cognitive Function: Fair Patient Appearance: Well Groomed Mood: Depressed Affect: Appropriate Patient Behavior: Cooperative Speech Pattern: Clear Voice Loudness: Normal Thought Process: Intact, Goal Oriented Hallucinations: Denies Suicidal Ideation: Denies Homicidal Ideation: Denies Insight/Judgement: Poor Sleep: Poorly Appetite: Fair Muscle strength/Tone: Normal Gait/Station: Normal Psychiatric Findings - Problem List ([place] 1, 2,3) (1) Substance induced mood disorder Current Visit: Yes Status: Acute (2) Substance-induced sleep disorder Current Visit: Yes Status: Acute (3) Alcohol dependence with uncomplicated withdrawal Current Visit: Yes Status: Acute (4) Cocaine dependence, uncomplicated Current Visit: Yes Status: Acute (5) Sedative, hypnotic or anxiolytic dependence, uncomplicated Current Visit: Yes Status: Acute (6) Opioid dependence on agonist therapy Current Visit: Yes Status: Chronic (7) Nicotine dependence Current Visit: Yes Status: Chronic Qualifiers: Nicotine product type: cigarettes Substance use status: uncomplicated Qualified Code(s): F17.210 - Nicotine dependence, cigarettes, uncomplicated - Initial Treatment Plan Initial Treatment Plan: 1) Resume Remeron 15 mg po HS. 2) Continue inpatient detoxification
[2019-12-12] MEDS: hydrOXYzine PAMOATE 50 MG CAPSULE (FP) PO PRN (20:27)
[2019-12-12] MEDS: MIRTAZAPINE 15 MG TABLET (FP) PO SCH (22:19)
[2019-12-12] MEDS: MELATONIN 5 MG TABLETS PO PRN (22:19)
[2019-12-12] MEDS: THIAMINE HCL 100 MG TABLET (FP) PO SCH (22:19)
[2019-12-13] MEDS: diazePAM 5 MG TABLET PO SCH ×2 (05:25→16:59)
[2019-12-13] MEDS: METHADONE HCL 40 MG DISPERSABLE TABLET PO SCH (05:25)
[2019-12-13] MEDS: PRENATAL VITAMINS W/ FOLIC ACID TABLET (FP) PO SCH (09:24)
[2019-12-13] MEDS: NICOTINE 21 MG/24 HOURS TOPICAL PATCH TD SCH (09:24)
[2019-12-13] MEDS: hydrOXYzine PAMOATE 50 MG CAPSULE (FP) PO PRN (09:25)
--- NOTE | 2019-12-13 11:43 | PN ---
S CIWA - CIWA Score Nausea/Vomitin-No Nausea/No Vomiting Muscle Tremors: 3 Anxiety: 1-Mildly Anxious Agitation: 1-Slight > Activity Paroxysmal Sweats: 1-Minimal Palms Moist Orientation: 0-Oriented Tacttile Disturbances: 0-None Auditory Disturbances: 0-None Visual Disturbances: 0-None Headache: 0-None Present CIWA-Ar Total Score: 6 BHS Progress Note (SOAP) Subjective: sweats feeling better Objective: 12/13/19 11:42 Vital Signs Temperature 98.4 F 12/13/19 09:35 Pulse Rate 76 12/13/19 09:35 Respiratory Rate 18 12/13/19 09:35 Blood Pressure 128/84 12/13/19 09:35 O2 Sat by Pulse Oximetry (%) aaox3 ambulating no acute distress Assessment: 12/13/19 11:43 mild withdrawals Plan: continue detox d/c in am
[2019-12-13] MEDS: THIAMINE HCL 100 MG TABLET (FP) PO SCH (21:16)
[2019-12-13] MEDS: MIRTAZAPINE 15 MG TABLET (FP) PO SCH (21:17)
[2019-12-14] MEDS: METHADONE HCL 40 MG DISPERSABLE TABLET PO SCH (05:49)
[2019-12-14] MEDS ORDERED: diazePAM 5 MG TABLET PO ONE (06:00)
[2019-12-14 09:32] VITALS: BP 129/98; PULSE 86; TEMP 98.1
--- NOTE | 2019-12-14 18:52 | DS ---
[facility] Detox Discharge Summary Admission Date: 12/11/19 Discharge Date: 12/14/19 - History Present History: Alcohol Dependence, Cocaine Dependence, Opioid Dependence, Sedative Dependence, MMTP Additional Comments: PATIENT ELECTING TO GO HOME A THIS TIME, WILL CONSIDER REHAB ADMISSION FOR LATER DATE. PATIENT RETURNING TO [facility] ([place], [place]), WHERE HE WAS PREVIOUSLY A CLIENT, FOR AFTERCARE. PATIENT ALSO ADVISED TO CONSIDER LOCAL 12-STEP / NA / [facility] FOR AFTERCARE. PATIENT VERBALIZED UNDERSTANDING OF RECOMMENDATION. PATIENT WAS DISCHARGED FORM DETOX UNIT IN STABLE MEDICAL CONDITION. Pertinent Past History: MMTP, History of Depression, Nicotine Dependence. - Physical Exam Results Vital Signs: Vital Signs Temperature 98.1 F 12/14/19 09:32 Pulse Rate 86 12/14/19 09:32 Respiratory Rate 18 12/14/19 09:32 Blood Pressure 129/98 12/14/19 09:32 O2 Sat by Pulse Oximetry (%) Pertinent Admission Physical Exam Findings: WITHDRAWAL SYMPTOMS. Laboratory Tests 12/12/19 12/12/19 12/12/19 08:20 08:20 08:20 WBC 4.5 RBC 4.06 Hgb 12.7 Hct 37.9 MCV 93.4 MCH 31.3 MCHC 33.6 RDW 12.4 Plt Count 195 MPV 11.6 H Sodium 141 Potassium 3.6 Chloride 109 H Carbon Dioxide 25 Anion Gap 6 L BUN 10.6 Creatinine 0.7 Est GFR (CKD-EPI)AfAm 134.91 Est GFR (CKD-EPI)NonAf 116.40 Random Glucose 90 Calcium 8.7 Total Bilirubin 0.5 AST 12 L ALT 24 Alkaline Phosphatase 88 Total Protein 6.7 Albumin 3.6 RPR Titer Nonreactive LABS NOTED. - Treatment Hospital Course: Detox Protocol Followed, Detoxed Safely, Responded well, Discharged Condition Good Patient has Accepted a Rehab Referral to: PT. WILL RETURN TO PREVIOUS [facility] ([place], [place]) FOR AFTERCARE. - Medication Discharge Medications: Ambulatory Orders Gabapentin 100 mg PO TID 12/11/19 Hydroxyzine HCl 50 mg PO DAILY 12/11/19 - Diagnosis (1) Alcohol dependence with uncomplicated withdrawal Status: Acute (2) Cocaine dependence, uncomplicated Status: Acute (3) Opioid dependence Status: Acute Qualifiers: Substance use status: uncomplicated Qualified Code(s): F11.20 - Opioid dependence, uncomplicated (4) Sedative, hypnotic or anxiolytic dependence, uncomplicated Status: Acute (5) Substance induced mood disorder Status: Acute (6) Substance-induced sleep disorder Status: Acute (7) Cocaine use disorder Status: Chronic (8) Methadone maintenance therapy patient Status: Chronic (9) Nicotine dependence Status: Chronic Qualifiers: Nicotine product type: cigarettes Substance use status: uncomplicated Qualified Code(s): F17.210 - Nicotine dependence, cigarettes, uncomplicated (10) Non compliance w medication regimen Status: Chronic (11) Opioid dependence on agonist therapy Status: Chronic (12) Psychiatric disorder Status: Chronic - AMA Did Patient Leave Against Medical Advice: No
== END 2019-12-14 09:06 | disposition home or self-care (01) | DRG 773 ==
LOC: YASAS 13:11 → Y6N 21:19
PROVIDERS: ADMIT Allergy & Immunology; ATTEND Allergy & Immunology
PROC: HZ2ZZZZ Detoxification Services for Substance Abuse Treatment (ICD-10-PCS; principal; 2019-12-11)
DX: F10.230 Alcohol dependence with withdrawal, uncomplicated (principal); F11.20 Opioid dependence, uncomplicated; F13.20 Sedative, hypnotic or anxiolytic dependence, uncomplicated; F14.20 Cocaine dependence, uncomplicated; F17.210 Nicotine dependence, cigarettes, uncomplicated; F19.282 Other psychoactive substance dependence with psychoactive substance-induced sleep disorder; F19.24 Other psychoactive substance dependence with psychoactive substance-induced mood disorder; F32.9 Major depressive disorder, single episode, unspecified; F99 Mental disorder, not otherwise specified; Z91.14 Patient's other noncompliance with medication regimen
CPT/HCPCS: 36415; 80053; 85027; 86593; 93005; 93010

== ENCOUNTER 2022-04-24 10:16 | Inpatient (IN) | payer OTHER ==
[2022-04-24] MEDS ORDERED: DICYCLOMINE HCL 10 MG CAPSULE PO PRN (13:03)
[2022-04-24] MEDS ORDERED: MAG HYDROX/AL HYDROX/SIMETH 30 ML UNIT-DOSE CUP PO PRN (13:03)
[2022-04-24] MEDS ORDERED: MAGNESIUM HYDROX 2400MG/30ML ORAL SUSPENSION 30 ML CUP PO PRN (13:03)
[2022-04-24] MEDS ORDERED: MAGNESIUM CITRATE 300 ML BOTTLE PO PRN (13:03)
[2022-04-24] MEDS ORDERED: NICOTINE POLACRILEX 2 MG GUM BUC PRN (13:03)
[2022-04-24] MEDS ORDERED: MELATONIN 5 MG TABLETS PO PRN (13:03)
[2022-04-24] MEDS ORDERED: LOPERAMIDE HCL 2 MG CAPSULE PO PRN (13:03)
[2022-04-24] MEDS ORDERED: ACETAMINOPHEN 325 MG TABLET (FP) PO PRN ×2 (13:03)
[2022-04-24] MEDS ORDERED: BENZOCAINE/MENTHOL (CHLORASEPTIC ) LOZENGE MM PRN (13:03)
[2022-04-24] MEDS ORDERED: BISMUTH SUBSALICYLATE 524 MG/30 ML PO PRN (13:03)
[2022-04-24] MEDS ORDERED: ONDANSETRON *ODT* 4 MG TABLET SL PRN (13:03)
[2022-04-24 13:18] VITALS: BMI 18.9
[2022-04-24] MEDS ORDERED: THIAMINE HCL 100 MG TABLET (FP) PO SCH (22:00)
[2022-04-24] MEDS: hydrOXYzine PAMOATE 25 MG CAPSULE (FP) PO PRN (22:47)
[2022-04-24] MEDS: IBUPROFEN 400 MG TABLET (FP) PO PRN (22:50)
[2022-04-25] MEDS: METHOCARBAMOL 500 MG TABLET PO PRN ×2 (02:20→10:54)
[2022-04-25] MEDS ORDERED: methaDONE HCL 10 MG TABLET (FOR DETOX USE ONLY) PO ONE ×2 (02:32→10:00)
[2022-04-25] MEDS ORDERED: ALBUTEROL SO4 HFA INHALER IH PRN (03:21)
[2022-04-25] MEDS: IBUPROFEN 400 MG TABLET (FP) PO PRN (06:01)
[2022-04-25] MEDS: cloNIDine HCL 0.1 MG TABLET PO PRN ×2 (06:01→10:53)
[2022-04-25 09:12] VITALS: BP 141/102; PULSE 100; TEMP 97.3
[2022-04-25] MEDS ORDERED: PRENATAL VITAMINS W/ FOLIC ACID TABLET (FP) PO SCH (10:00)
[2022-04-25] MEDS: hydrOXYzine PAMOATE 25 MG CAPSULE (FP) PO PRN (10:54)
[2022-04-25] MEDS ORDERED: diazePAM 5 MG TABLET PO PRN (11:31)
[2022-04-27] MEDS ORDERED: methaDONE HCL 10 MG TABLET (FOR DETOX USE ONLY) PO ONE (10:00)
[2022-04-29] MEDS ORDERED: methaDONE HCL 10 MG TABLET (FOR DETOX USE ONLY) PO ONE (10:00)
== END 2022-04-25 13:23 | disposition left against medical advice (07) | DRG 770 ==
LOC: YASAS 10:16 → Y6N 13:21
PROVIDERS: ADMIT Allergy & Immunology; ATTEND Surgery
PROC: HZ2ZZZZ Detoxification Services for Substance Abuse Treatment (ICD-10-PCS; principal; 2022-04-24)
DX: F11.23 Opioid dependence with withdrawal (principal); F10.20 Alcohol dependence, uncomplicated; F14.20 Cocaine dependence, uncomplicated; F17.210 Nicotine dependence, cigarettes, uncomplicated; F19.282 Other psychoactive substance dependence with psychoactive substance-induced sleep disorder; Z28.310 Unvaccinated for COVID-19
CPT/HCPCS: C9803-CS; J0735; U0003; U0005

== ENCOUNTER 2023-11-08 14:58 | Inpatient (IN) | payer OTHER ==
[2023-11-08 15:40] VITALS: BMI 22.0
[2023-11-08] MEDS ORDERED: NICOTINE POLACRILEX 2 MG GUM BUC PRN (20:51)
[2023-11-08] MEDS ORDERED: guaiFENesin 600 MG TABLET.ER (FP) PO PRN (20:51)
[2023-11-08] MEDS ORDERED: IBUPROFEN 400 MG TABLET (FP) PO PRN (20:51)
[2023-11-08] MEDS ORDERED: ONDANSETRON *ODT* 4 MG TABLET SL PRN (20:51)
[2023-11-08] MEDS ORDERED: MAGNESIUM HYDROX 2400MG/30ML ORAL SUSPENSION 30 ML CUP PO PRN (20:51)
[2023-11-08] MEDS ORDERED: NALOXONE HCL (KLOXXADO) 8 MG SPRAY NS PRN (20:51)
[2023-11-08] MEDS ORDERED: P-EPHED 60MG/TRIPROLIDI 2.5MG TABLET PO PRN (20:51)
[2023-11-08] MEDS ORDERED: NALOXONE HCL 0.4 MG/ML VIAL IM PRN (20:51)
[2023-11-08] MEDS ORDERED: BISMUTH SUBSALICYLATE 524 MG/30 ML PO PRN (20:51)
[2023-11-08] MEDS ORDERED: ACETAMINOPHEN 325 MG TABLET (FP) PO PRN (20:51)
[2023-11-08] MEDS ORDERED: BENZONATATE 200 MG CAPSULE PO PRN (20:51)
[2023-11-08] MEDS ORDERED: POLYETHYLENE GLYCOL (HEALTHYLAX) 3350 17 GM PACKET PO PRN (20:51)
[2023-11-08] MEDS ORDERED: BENZOCAINE/MENTHOL (CHLORASEPTIC ) LOZENGE MM PRN (20:51)
[2023-11-08] MEDS ORDERED: LOPERAMIDE HCL 2 MG CAPSULE PO PRN (20:51)
[2023-11-08] MEDS: METHOCARBAMOL 500 MG TABLET PO PRN (23:36)
[2023-11-08] MEDS: MELATONIN 5 MG TABLETS PO SCH (23:36)
[2023-11-08] MEDS: THIAMINE HCL 100 MG TABLET (FP) PO SCH (23:36)
[2023-11-09] MEDS: PRENATAL VITAMINS W/ FOLIC ACID TABLET (FP) PO SCH (09:31)
[2023-11-09] MEDS: METHOCARBAMOL 500 MG TABLET PO PRN (09:31)
[2023-11-09] MEDS ORDERED: methaDONE HCL 10 MG TABLET PO SCH (09:45)
[2023-11-09] MEDS: methaDONE 80 MG, methaDONE 10 MG PO SCH (10:11)
[2023-11-09] MEDS: diazePAM 5 MG TABLET PO SCH ×3 (10:12→22:03)
[2023-11-09 11:24] LABS: HEMATOCRIT 34.9 % (35.4-49); HEMOGLOBIN 11.5 GM/dL (11.7-16.9); MCH 32.1 pg (25.7-33.7); MEAN CELL VOLUME 97.3 fl (80-96); MEAN PLT VOLUME 9.9 fl (7.5-11.1); PLATELET COUNT 206 10^3/uL (134-434); RBC 3.59 M/mm3 (4.00-5.60); RDW 12.7 % (11.9-15.9); WHITE BLOOD COUNT 3.9 K/mm3 (4.0-10.0)
[2023-11-09 11:57] LABS: CHLORIDE 106 mmol/L (98-107); POTASSIUM 3.7 mmol/L (3.5-5.1); SODIUM 141 mmol/L (136-145)
[2023-11-09 11:59] LABS: CALCIUM 8.1 mg/dL (8.5-10.1)
[2023-11-09 12:00] LABS: ALBUMIN 3.1 g/dl (3.4-5.0); ANION GAP 4 mmol/L (4-13); BLOOD UREA NITROGEN 11.4 mg/dL (7-18); CO2 30 mmol/L (21-32); GLUCOSE,RANDOM 77 mg/dL (74-106)
[2023-11-09 12:02] LABS: SGPT/ALT 17 U/L (13-61)
[2023-11-09 12:03] LABS: CREATININE 0.8 mg/dL (0.55-1.3); SGOT/AST 11 U/L (15-37)
[2023-11-09 12:04] LABS: BILIRUBIN,TOTAL 0.3 mg/dL (0.2-1)
[2023-11-09 12:05] LABS: ALK PHOS 66 U/L (45-117)
[2023-11-09] MEDS: IBUPROFEN 600 MG TABLET (FP) PO PRN (12:33)
[2023-11-09] MEDS: MELATONIN 5 MG TABLETS PO SCH (22:02)
[2023-11-09] MEDS: THIAMINE HCL 100 MG TABLET (FP) PO SCH (22:02)
[2023-11-10] MEDS: methaDONE 80 MG, methaDONE 10 MG PO SCH (05:31)
[2023-11-10] MEDS: diazePAM 5 MG TABLET PO SCH ×4 (05:31→22:09)
[2023-11-10] MEDS: IBUPROFEN 600 MG TABLET (FP) PO PRN ×2 (05:33→17:28)
[2023-11-10] MEDS: ALBUTEROL SO4 HFA INHALER IH PRN (08:04)
[2023-11-10] MEDS ORDERED: methaDONE HCL 10 MG TABLET (FOR DETOX USE ONLY) PO ONE (09:17)
[2023-11-10] MEDS ORDERED: methaDONE HCL 10 MG TABLET PO ONE (09:20)
[2023-11-10] MEDS: PRENATAL VITAMINS W/ FOLIC ACID TABLET (FP) PO SCH (09:33)
[2023-11-10] MEDS: SACUBITRIL/VALSARTAN 24 MG-26 MG TABLET PO SCH ×2 (13:12→22:09)
[2023-11-10] MEDS: BUDESONIDE/FORMETEROL FUMARATE 80/4.5 mcg INHALER IH SCH ×2 (13:12→22:09)
[2023-11-10] MEDS: CARVEDILOL 6.25 MG TABLET (FP) PO SCH ×2 (13:12→22:09)
[2023-11-10] MEDS: THIAMINE HCL 100 MG TABLET (FP) PO SCH (22:09)
[2023-11-10] MEDS: MIRTAZAPINE 15 MG TABLET (FP) PO SCH (22:09)
[2023-11-10] MEDS: MELATONIN 5 MG TABLETS PO SCH (22:09)
[2023-11-11] MEDS: diazePAM 5 MG TABLET PO SCH ×3 (05:19→21:10)
[2023-11-11] MEDS: methaDONE 80 MG, methaDONE 20 MG PO SCH (05:19)
[2023-11-11] MEDS ORDERED: methaDONE HCL 40 MG DISPERSABLE TABLET PO SCH (06:00)
[2023-11-11] MEDS: EMPAGLIFLOZIN (JARDIANCE) 10 MG TABLET PO SCH (06:22)
[2023-11-11] MEDS: MAG HYDROX/AL HYDROX/SIMETH 30 ML UNIT-DOSE CUP PO PRN (06:24)
[2023-11-11] MEDS: PRENATAL VITAMINS W/ FOLIC ACID TABLET (FP) PO SCH (10:26)
[2023-11-11] MEDS: BUDESONIDE/FORMETEROL FUMARATE 80/4.5 mcg INHALER IH SCH ×2 (10:26→21:07)
[2023-11-11] MEDS: SACUBITRIL/VALSARTAN 24 MG-26 MG TABLET PO SCH ×2 (10:26→21:09)
[2023-11-11] MEDS: CARVEDILOL 6.25 MG TABLET (FP) PO SCH ×2 (10:26→21:08)
[2023-11-11] MEDS: diazePAM 5 MG TABLET PO PRN (10:28)
[2023-11-11] MEDS: DICYCLOMINE HCL 10 MG CAPSULE PO PRN (21:08)
[2023-11-11] MEDS: MELATONIN 5 MG TABLETS PO SCH (21:08)
[2023-11-11] MEDS: MIRTAZAPINE 15 MG TABLET (FP) PO SCH (21:09)
[2023-11-11] MEDS: THIAMINE HCL 100 MG TABLET (FP) PO SCH (21:09)
[2023-11-12] MEDS: diazePAM 5 MG TABLET PO SCH ×2 (05:34→17:19)
[2023-11-12] MEDS: methaDONE 80 MG, methaDONE 20 MG PO SCH (05:34)
[2023-11-12] MEDS: DICYCLOMINE HCL 10 MG CAPSULE PO PRN ×2 (05:37→21:12)
[2023-11-12] MEDS: MAG HYDROX/AL HYDROX/SIMETH 30 ML UNIT-DOSE CUP PO PRN (05:37)
[2023-11-12] MEDS: EMPAGLIFLOZIN (JARDIANCE) 10 MG TABLET PO SCH (07:29)
[2023-11-12] MEDS: diazePAM 5 MG TABLET PO PRN (09:19)
[2023-11-12] MEDS: BUDESONIDE/FORMETEROL FUMARATE 80/4.5 mcg INHALER IH SCH ×2 (10:17→21:05)
[2023-11-12] MEDS: METHOCARBAMOL 500 MG TABLET PO PRN (10:18)
[2023-11-12] MEDS: CARVEDILOL 6.25 MG TABLET (FP) PO SCH ×2 (10:18→21:05)
[2023-11-12] MEDS: SACUBITRIL/VALSARTAN 24 MG-26 MG TABLET PO SCH ×2 (10:18→21:05)
[2023-11-12] MEDS: PRENATAL VITAMINS W/ FOLIC ACID TABLET (FP) PO SCH (10:18)
[2023-11-12] MEDS: ALBUTEROL SO4 HFA INHALER IH PRN (16:29)
[2023-11-12] MEDS: MIRTAZAPINE 15 MG TABLET (FP) PO SCH (21:05)
[2023-11-12] MEDS: MELATONIN 5 MG TABLETS PO SCH (21:05)
[2023-11-12] MEDS: THIAMINE HCL 100 MG TABLET (FP) PO SCH (21:07)
[2023-11-13] MEDS: methaDONE 80 MG, methaDONE 20 MG PO SCH (05:24)
[2023-11-13] MEDS: ALBUTEROL SO4 HFA INHALER IH PRN (05:26)
[2023-11-13] MEDS: MAG HYDROX/AL HYDROX/SIMETH 30 ML UNIT-DOSE CUP PO PRN (05:36)
[2023-11-13] MEDS ORDERED: diazePAM 5 MG TABLET PO ONE (06:00)
[2023-11-13] MEDS: EMPAGLIFLOZIN (JARDIANCE) 10 MG TABLET PO SCH (07:13)
[2023-11-13] MEDS: IBUPROFEN 600 MG TABLET (FP) PO PRN (08:39)
[2023-11-13 08:55] VITALS: BP 109/66; PULSE 76; RESP 16; TEMP 97.9
[2023-11-13] MEDS: PRENATAL VITAMINS W/ FOLIC ACID TABLET (FP) PO SCH (10:19)
[2023-11-13] MEDS: BUDESONIDE/FORMETEROL FUMARATE 80/4.5 mcg INHALER IH SCH (10:19)
[2023-11-13] MEDS: CARVEDILOL 6.25 MG TABLET (FP) PO SCH (10:19)
[2023-11-13] MEDS: SACUBITRIL/VALSARTAN 24 MG-26 MG TABLET PO SCH (10:19)
== END 2023-11-13 10:59 | disposition other institution (70) | DRG 773 ==
LOC: YASAS 14:58 → Y3N 22:37
PROVIDERS: ADMIT Allergy & Immunology; ATTEND Surgery
PROC: HZ2ZZZZ Detoxification Services for Substance Abuse Treatment (ICD-10-PCS; principal; 2023-11-08)
DX: F10.230 Alcohol dependence with withdrawal, uncomplicated (principal); F11.20 Opioid dependence, uncomplicated; F13.20 Sedative, hypnotic or anxiolytic dependence, uncomplicated; F14.20 Cocaine dependence, uncomplicated; F17.210 Nicotine dependence, cigarettes, uncomplicated; F19.282 Other psychoactive substance dependence with psychoactive substance-induced sleep disorder; F19.24 Other psychoactive substance dependence with psychoactive substance-induced mood disorder; I11.0 Hypertensive heart disease with heart failure; I50.9 Heart failure, unspecified; E11.9 Type 2 diabetes mellitus without complications; Z79.84 Long term (current) use of oral hypoglycemic drugs; Z91.148 Patient's other noncompliance with medication regimen for other reason; Z28.310 Unvaccinated for COVID-19; Z28.9 Immunization not carried out for unspecified reason
CPT/HCPCS: 36415; 80053; 80307; 82962; 85027; 86780; 87635